=== PATIENT | male | born 1955 | race Caucasian/White ===

== ENCOUNTER → 2021-08-10 | Outpatient (CLI) | payer OTHER | LOC: M LAB 12:00 | PROVIDERS: ATTEND Internal Medicine Gastroenterology | DX: R19.7 Diarrhea, unspecified (principal) ==

== ENCOUNTER → 2021-08-11 | Outpatient (REF) | payer OTHER | LOC: M LAB REF 10:31 | PROVIDERS: ATTEND Internal Medicine Gastroenterology | DX: R19.4 Change in bowel habit (principal); Z12.11 Encounter for screening for malignant neoplasm of colon ==

== ENCOUNTER → 2021-10-01 | Outpatient (CLI) | payer OTHER ==
[~2021-10-01] MED LIST: ALEV1TAB PO; AMLO1TAB25 PO; ATEN50TA2 PO; CHLO125TA PO; DICL75TA PO; FLUO20CA22 PO; GABA-282 PO; LISI5TAB11 PO; LOSA50TA28 PO; METF500T13 PO; OMEP40CA5 PO; ZOLP10TA2 PO
== END ==
LOC: M LABSMTC 10:48
PROVIDERS: ATTEND Anesthesiology
DX: Z01.812 Encounter for preprocedural laboratory examination (principal); Z20.822 Contact with and (suspected) exposure to COVID-19

== ENCOUNTER 2021-10-06 06:32 | Day surgery (SDC) | payer MEDICARE, OTHER ==
[~2021-10-06] VITALS: Ht 177.8 cm; Wt 123.7 kg
[~2021-10-06 06:32] MED LIST changes: +NS 1,000 ML IV ONE
[2021-10-06] MEDS ORDERED: propofoL 200 MG/20 ML VIAL As Ordered ONE ×2 (06:38→07:53)
[2021-10-06] MEDS ORDERED: LIDOCAINE 2% 100MG/5ML SDV (FOR ANES.) As Ordered ONE (06:38)
[2021-10-06 08:20] VITALS: BP 139/84
== END 2021-10-06 08:36 | disposition home or self-care (01) ==
LOC: M OPP 06:32
PROVIDERS: ATTEND Internal Medicine Gastroenterology
DX: Z12.11 Encounter for screening for malignant neoplasm of colon (principal); K62.1 Rectal polyp; K63.5 Polyp of colon; G47.33 Obstructive sleep apnea (adult) (pediatric); E11.9 Type 2 diabetes mellitus without complications; Z79.84 Long term (current) use of oral hypoglycemic drugs; Z79.899 Other long term (current) drug therapy; Z86.14 Personal history of Methicillin resistant Staphylococcus aureus infection

== ENCOUNTER → 2022-02-23 | Outpatient (CLI) | payer MEDICARE ==
[~2022-02-23] MED LIST changes: -NS 1,000 ML IV ONE
== END ==
LOC: M PLALAB 11:59
PROVIDERS: ATTEND Internal Medicine Pulmonary Disease
DX: R91.8 Other nonspecific abnormal finding of lung field (principal)

== ENCOUNTER 2022-03-28 15:38 | Inpatient (IN) | payer MEDICARE ==
[~2022-03-28] VITALS: Ht 177.8 cm; Wt 123.4 kg
[2022-03-28] MEDS ORDERED: ZOLP10TA2 PO (15:57)
[2022-03-28] MEDS ORDERED: LOSA50TA5 PO (15:57)
[2022-03-28 16:37] LABS: BASO # 0.1 10^3/uL (0.0-0.2); BASO % 0.7 % (0.0-1.0); EOS # 0.2 10^3/uL (0.0-0.5); EOS % 2.3 % (0.0-3.0); HEMATOCRIT 39.4 % (42.0-52.0); HEMOGLOBIN 14.7 g/dl (13.5-17.5); LYMPH # 2.3 10^3/uL (1.5-5.0); LYMPH % 31.6 % (24.0-44.0); MEAN CORPUSCULAR HEMOGLOBIN 31.7 pg (27.0-33.0); MEAN CORPUSCULAR VOLUME 85.1 fl (80.0-96.0); MONO # 0.9 10^3/uL (0.0-0.8); MONO % 12.4 % (2.0-8.0); NEUTROPHILS # 3.8 10^3/uL (1.5-8.5); NEUTROPHILS % 52.7 % (36.0-66.0); PLATELET COUNT, AUTOMATED 263 10^3/uL (150-450); RED BLOOD COUNT 4.63 10^6/uL (4.30-6.10); WHITE BLOOD COUNT 7.3 10^3/uL (4.0-10.0)
[2022-03-28 16:41] LABS: MEAN CORPUSCULAR HGB CONC 37.3 g/dl (32.0-36.5)
[2022-03-28 16:59] LABS: BLOOD UREA NITROGEN 25 MG/DL (7-18); CALCIUM LEVEL 9.1 MG/DL (8.8-10.2); CARBON DIOXIDE LEVEL 29 MEQ/L (21-32); CHLORIDE LEVEL 98 MEQ/L (98-107); CREATININE FOR GFR 1.27 MG/DL (0.70-1.30); GLOMERULAR FILTRATION RATE > 60.0 (>49); GLUCOSE, FASTING 156 MG/DL (70-100); POTASSIUM SERUM 3.4 MEQ/L (3.5-5.1); SODIUM LEVEL 134 MEQ/L (136-145)
[2022-03-28] MEDS ORDERED: NS 1,000 ML IV ONE (18:10)
[2022-03-28] MEDS ORDERED: AMPICILLIN SOD/SULBACTAM SOD 3 GM in D5W MINI-BAG PLUS 100 ML IV ONE (18:10)
[2022-03-28] MEDS ORDERED: VANCOMYCIN HCL 2,000 MG in D5W 500 ML IV ONE (18:10)
[2022-03-28] MEDS ORDERED: VANCOMYCIN HCL 1,000 MG, VIAL MATE ADAPTER 1 EACH in NS 250 ML IV ONE ×2 (18:15→19:30)
[2022-03-28 18:34] LABS: ALBUMIN 3.6 GM/DL (3.2-5.2); ALT/SGPT 19 U/L (12-78); BILIRUBIN,DIRECT 0.3 MG/DL (0.0-0.2); BILIRUBIN,TOTAL 1.1 MG/DL (0.2-1.0); TOTAL PROTEIN 7.8 GM/DL (6.4-8.2)
[2022-03-28 19:15] LABS: ERYTHROCYTE SEDIMENTATION RATE 39 mm/hr (0-20)
[2022-03-28 19:38] LABS: RSV AMPLIFICATION NEGATIVE (NEGATIVE)
[2022-03-28] MEDS ORDERED: HOME MED LIST COMPLETE! XX SCH (20:20)
[2022-03-28] MEDS ORDERED: GLUCAGON INJ 1MG VIAL SC PRN (22:30)
[2022-03-28] MEDS ORDERED: DEXTROSE 50% 50 ML SYRINGE IV PRN (22:30)
[2022-03-28] MEDS ORDERED: GLUCOSE 4GM CHEW TABLET PO PRN (22:30)
[2022-03-28] MEDS: INSULIN LISPRO (NovoLOG) PER UNIT SC SCH (23:12)
[2022-03-28] MEDS: NS 1,000 ML IV SCH (23:13)
[2022-03-28] MEDS: ACETAMINOPHEN 500 MG TAB PO PRN (23:25)
[2022-03-28] MEDS ORDERED: POTASSIUM CHLORIDE 10% LIQ 20 MEQ/15 ML UDC PO ONE (23:45)
[2022-03-29] MEDS: VANCOMYCIN HCL 750 MG, VIAL MATE ADAPTER 1 EACH in D5W 250 ML IV SCH ×4 (05:27→18:51)
[2022-03-29] MEDS: ACETAMINOPHEN 500 MG TAB PO PRN ×2 (05:28→21:19)
[2022-03-29 06:48] LABS: BLOOD UREA NITROGEN 19 MG/DL (7-18); CALCIUM LEVEL 8.8 MG/DL (8.8-10.2); CARBON DIOXIDE LEVEL 30 MEQ/L (21-32); CHLORIDE LEVEL 100 MEQ/L (98-107); CREATININE FOR GFR 1.04 MG/DL (0.70-1.30); GLOMERULAR FILTRATION RATE > 60.0 (>49); GLUCOSE, FASTING 148 MG/DL (70-100); POTASSIUM SERUM 3.5 MEQ/L (3.5-5.1); SODIUM LEVEL 135 MEQ/L (136-145)
[2022-03-29] MEDS: INSULIN LISPRO (NovoLOG) PER UNIT SC SCH ×4 (08:42→21:00)
[2022-03-29] MEDS: OMEPRAZOLE 20MG CAP PO SCH (08:42)
[2022-03-29] MEDS: GABAPENTIN 300 MG CAP PO SCH ×3 (08:42→21:19)
[2022-03-29] MEDS: FLUoxetine 20MG CAP PO SCH (08:42)
[2022-03-29] MEDS ORDERED: LOSARTAN 50MG TABLET PO SCH (09:00)
[2022-03-29] MEDS ORDERED: KETOROLAC 30 MG/ML 1ML VIAL IV ONE (09:15)
[2022-03-29] MEDS ORDERED: HYDROMORPHONE HCL 0.5 MG/ 0.5 ML SYRINGE (J1170 PER 1) IV ONE (09:15)
[2022-03-29 09:50] LABS: CHOLESTEROL LEVEL 110 MG/DL (<200); CHOLESTEROL RISK RATIO 2.972 (<5); HDL CHOLESTEROL 37 MG/DL (>40); LDL CHOLESTEROL 43 MG/DL (<100); NON-HDL-C 73 MG/DL; TRIGLYCERIDES LEVEL 148 MG/DL (<150)
[2022-03-29 10:04] LABS: HEMOGLOBIN A1c 6.4 %
[2022-03-29] MEDS: NS 1,000 ML IV SCH (14:44)
[2022-03-29] MEDS ORDERED: LIDOCAINE 1% MDV 20ML VIAL As Ordered ONE (15:28)
[2022-03-29] MEDS ORDERED: BUPIVACAINE HCL 0.5% 30ML VIAL As Ordered ONE (15:29)
[2022-03-29] MEDS ORDERED: MIDAZOLAM INJ 2MG/2ML VIAL (J2250 PER 1MG) As Ordered ONE (16:32)
[2022-03-29] MEDS ORDERED: METOCLOPRAMIDE INJ 10MG/2ML VIAL (J2765 PER 1) As Ordered ONE (16:32)
[2022-03-29] MEDS ORDERED: ONDANSETRON 4MG 2ML VIAL As Ordered ONE (16:32)
[2022-03-29] MEDS ORDERED: fentaNYL 100 MCG/2 ML INJECTION As Ordered ONE (16:32)
[2022-03-29] MEDS ORDERED: LIDOCAINE 2% 100MG/5ML SDV (FOR ANES.) As Ordered ONE (16:32)
[2022-03-29] MEDS ORDERED: SEVOFLURANE INHAL SOLN 250 ML BTL As Ordered ONE (16:32)
[2022-03-29] MEDS ORDERED: DESFLURANE 240 ML INHALANT As Ordered ONE (16:32)
[2022-03-29] MEDS ORDERED: propofoL 200 MG/20 ML VIAL As Ordered ONE (16:32)
[2022-03-29] MEDS ORDERED: ACETAMINOPHEN 1000MG 100ML IV BTL (OFIRMEV) (J0131 PER 10MG) As Ordered ONE (16:35)
[2022-03-29 18:15] VITALS: BP 108/68
[2022-03-29 18:45] VITALS: BP 117/75
[2022-03-29 19:38] VITALS: BP 120/75
[2022-03-29 20:54] VITALS: BP 122/75
[2022-03-29 21:48] VITALS: BP 124/76
[2022-03-29] MEDS: PERCOCET 5MG/325MG TAB PO PRN (22:45)
[2022-03-30 02:00] VITALS: BP 103/59
[2022-03-30 04:41] LABS: BASO % 0.5 % (0.0-1.0); EOS # 0.2 10^3/uL (0.0-0.5); EOS % 3.2 % (0.0-3.0); HEMATOCRIT 37.4 % (42.0-52.0); HEMOGLOBIN 13.8 g/dl (13.5-17.5); LYMPH # 1.6 10^3/uL (1.5-5.0); LYMPH % 21.2 % (24.0-44.0); MEAN CORPUSCULAR HGB CONC 36.9 g/dl (32.0-36.5); MEAN CORPUSCULAR VOLUME 86.8 fl (80.0-96.0); MONO % 12.7 % (2.0-8.0); NEUTROPHILS # 4.6 10^3/uL (1.5-8.5); PLATELET COUNT, AUTOMATED 237 10^3/uL (150-450); RED BLOOD COUNT 4.31 10^6/uL (4.30-6.10); WHITE BLOOD COUNT 7.5 10^3/uL (4.0-10.0)
[2022-03-30 04:51] LABS: BLOOD UREA NITROGEN 14 MG/DL (7-18); CALCIUM LEVEL 8.3 MG/DL (8.8-10.2); CARBON DIOXIDE LEVEL 31 MEQ/L (21-32); CHLORIDE LEVEL 101 MEQ/L (98-107); GLOMERULAR FILTRATION RATE > 60.0 (>49); GLUCOSE, FASTING 121 MG/DL (70-100); POTASSIUM SERUM 3.8 MEQ/L (3.5-5.1); SODIUM LEVEL 136 MEQ/L (136-145)
[2022-03-30] MEDS: VANCOMYCIN HCL 750 MG, VIAL MATE ADAPTER 1 EACH in D5W 250 ML IV SCH ×4 (05:03→17:08)
[2022-03-30] MEDS: PERCOCET 5MG/325MG TAB PO PRN ×4 (05:13→23:14)
[2022-03-30 06:00] VITALS: BP 130/73
[2022-03-30 08:14] LABS: C REACTIVE PROTEIN QUANTITATIV 3.04 MG/DL (0.00-0.30)
[2022-03-30] MEDS: INSULIN LISPRO (NovoLOG) PER UNIT SC SCH ×4 (08:21→21:00)
[2022-03-30 08:22] LABS: ERYTHROCYTE SEDIMENTATION RATE 33 mm/hr (0-20)
[2022-03-30] MEDS: FLUoxetine 20MG CAP PO SCH (08:22)
[2022-03-30] MEDS: GABAPENTIN 300 MG CAP PO SCH ×3 (08:22→21:10)
[2022-03-30] MEDS: OMEPRAZOLE 20MG CAP PO SCH (08:22)
[2022-03-30] MEDS: MUPIROCIN 2% OINT 22 GM TUBE TOP SCH (08:24)
[2022-03-30 10:00] VITALS: BP 134/94
[2022-03-30] MEDS: ACETAMINOPHEN 500 MG TAB PO PRN ×2 (12:01→21:19)
[2022-03-30 14:00] VITALS: BP 131/73
[2022-03-30] MEDS ORDERED: LEVO1TAB40 PO (15:17)
[2022-03-30] MEDS ORDERED: PERCOCET PO (15:18)
[2022-03-30] MEDS: LevoFLOXacin 750 MG TABLET PO SCH (15:39)
[2022-03-30 18:00] VITALS: BP 129/73
[2022-03-30 22:00] VITALS: BP 109/66
[2022-03-31] MEDS: VANCOMYCIN HCL 750 MG, VIAL MATE ADAPTER 1 EACH in D5W 250 ML IV SCH ×2 (06:24→06:25)
[2022-03-31] MEDS: LevoFLOXacin 750 MG TABLET PO SCH (06:24)
[2022-03-31 07:28] LABS: BASO # 0.1 10^3/uL (0.0-0.2); EOS # 0.1 10^3/uL (0.0-0.5); EOS % 2.7 % (0.0-3.0); HEMATOCRIT 36.6 % (42.0-52.0); HEMOGLOBIN 13.3 g/dl (13.5-17.5); LYMPH # 1.1 10^3/uL (1.5-5.0); LYMPH % 22.3 % (24.0-44.0); MEAN CORPUSCULAR HEMOGLOBIN 31.5 pg (27.0-33.0); MEAN CORPUSCULAR HGB CONC 36.3 g/dl (32.0-36.5); MEAN CORPUSCULAR VOLUME 86.7 fl (80.0-96.0); MONO # 0.7 10^3/uL (0.0-0.8); MONO % 14.3 % (2.0-8.0); NEUTROPHILS # 2.9 10^3/uL (1.5-8.5); NEUTROPHILS % 59.5 % (36.0-66.0); PLATELET COUNT, AUTOMATED 228 10^3/uL (150-450); RED BLOOD COUNT 4.22 10^6/uL (4.30-6.10); WHITE BLOOD COUNT 4.9 10^3/uL (4.0-10.0)
[2022-03-31] MEDS: INSULIN LISPRO (NovoLOG) PER UNIT SC SCH (08:20)
[2022-03-31] MEDS: OMEPRAZOLE 20MG CAP PO SCH (08:21)
[2022-03-31] MEDS: FLUoxetine 20MG CAP PO SCH (08:21)
[2022-03-31] MEDS: GABAPENTIN 300 MG CAP PO SCH (08:21)
[2022-03-31 08:26] VITALS: BP 116/74
[2022-03-31] MEDS: MUPIROCIN 2% OINT 22 GM TUBE TOP SCH (08:26)
[2022-03-31 08:57] LABS: BLOOD UREA NITROGEN 11 MG/DL (7-18); CALCIUM LEVEL 8.8 MG/DL (8.8-10.2); CARBON DIOXIDE LEVEL 31 MEQ/L (21-32); CHLORIDE LEVEL 97 MEQ/L (98-107); CREATININE FOR GFR 1.02 MG/DL (0.70-1.30); GLOMERULAR FILTRATION RATE > 60.0 (>49); GLUCOSE, FASTING 181 MG/DL (70-100); POTASSIUM SERUM 3.5 MEQ/L (3.5-5.1); SODIUM LEVEL 134 MEQ/L (136-145)
[2022-03-31 10:00] VITALS: BP 113/71
== END 2022-03-31 12:00 | disposition home or self-care (01) | DRG 617 ==
LOC: M ED 15:38 → M ED INP 22:30 → ENRESERV 03-29 14:29 → M MS5PR 03-29 18:15
PROVIDERS: ADMIT Internal Medicine; ATTEND Internal Medicine
PROC: 0Y6X0Z3 Detachment at Right 5th Toe, Low, Open Approach (ICD-10-PCS; principal; 2022-03-29 15:30)
DX: E11.621 Type 2 diabetes mellitus with foot ulcer (principal); E87.1 Hypo-osmolality and hyponatremia; L03.115 Cellulitis of right lower limb; M86.471 Chronic osteomyelitis with draining sinus, right ankle and foot; E66.9 Obesity, unspecified; Z68.39 Body mass index [BMI] 39.0-39.9, adult; E11.42 Type 2 diabetes mellitus with diabetic polyneuropathy; E87.6 Hypokalemia; E11.628 Type 2 diabetes mellitus with other skin complications; K21.9 Gastro-esophageal reflux disease without esophagitis; I10 Essential (primary) hypertension; E11.51 Type 2 diabetes mellitus with diabetic peripheral angiopathy without gangrene; L97.519 Non-pressure chronic ulcer of other part of right foot with unspecified severity; K58.9 Irritable bowel syndrome, unspecified; E11.69 Type 2 diabetes mellitus with other specified complication; F32.A Depression, unspecified; L97.529 Non-pressure chronic ulcer of other part of left foot with unspecified severity; G47.00 Insomnia, unspecified; F41.9 Anxiety disorder, unspecified; Z79.899 Other long term (current) drug therapy

== ENCOUNTER → 2022-05-21 | Outpatient (CLI) | payer MEDICARE ==
[~2022-05-21] MED LIST changes: +LEVO1TAB40 PO; +LOSA50TA5 PO; +PERCOCET PO
== END ==
LOC: M RAD 11:41
PROVIDERS: ATTEND Internal Medicine Pulmonary Disease
DX: R91.8 Other nonspecific abnormal finding of lung field (principal)

== ENCOUNTER → 2022-11-19 | Outpatient (CLI) | payer MEDICARE | LOC: M PLAIMG 10:58 | PROVIDERS: ATTEND Internal Medicine Pulmonary Disease | DX: R91.8 Other nonspecific abnormal finding of lung field (principal) ==

== ENCOUNTER → 2023-04-21 | Outpatient (REF) | payer MEDICARE ==
[2023-04-21 19:03] LABS: TOTAL PROTEIN,RANDOM URINE 36.8 MG/DL (0.0-14.0)
[2023-04-21 19:19] LABS: CREATININE,RANDOM URINE 293.6 MG/DL
== END ==
LOC: M LAB REF 17:34
PROVIDERS: ATTEND Internal Medicine Nephrology
DX: R80.9 Proteinuria, unspecified (principal)

== ENCOUNTER → 2023-12-08 | Outpatient (CLI) | payer MEDICARE ==
[~2023-12-08] MED LIST changes: +FLUO-365 PO; -FLUO20CA22 PO
== END ==
LOC: M PLAIMG 09:57
PROVIDERS: ATTEND Internal Medicine Pulmonary Disease
DX: R91.8 Other nonspecific abnormal finding of lung field (principal); R91.1 Solitary pulmonary nodule; R59.0 Localized enlarged lymph nodes

== ENCOUNTER 2024-09-05 09:54 | Day surgery (SDC) | payer MEDICARE ==
[~2024-09-05] VITALS: Ht 177.8 cm; Wt 125.6 kg
[~2024-09-05 09:54] MED LIST changes: +GABA-1172 PO; -GABA-282 PO; +fentaNYL 100 MCG/2 ML INJECTION As Ordered ONE; +propofoL 500 MG/50 ML VIAL As Ordered ONE
[2024-09-05] MEDS ORDERED: FLEC25TA PO (10:29)
[2024-09-05] MEDS ORDERED: ELIQ5TAB PO (10:29)
[2024-09-05] MEDS ORDERED: MELO15TA28 PO (10:29)
[2024-09-05] MEDS ORDERED: IBUP80TA PO (10:29)
[2024-09-05] MEDS ORDERED: VANCOMYCIN HCL 1,000 MG, VIAL MATE ADAPTER 1 EACH in NS 250 ML IV ONE (11:10)
[2024-09-05] MEDS ORDERED: VANCOMYCIN HCL 1,750 MG, VIAL MATE ADAPTER 1 EACH in NS 500 ML IV SCH (11:10)
[2024-09-05] MEDS ORDERED: LIDOCAINE 2% INJ 100 MG/5 ML SYRINGE As Ordered ONE (11:22)
[2024-09-05] MEDS: LIDOCAINE 1% MDV 20ML VIAL As Ordered ONE (11:46)
[2024-09-05] MEDS: VANCOMYCIN HCL 1,750 MG, VIAL MATE ADAPTER 1 EACH in NS 500 ML IV ONE (11:58)
[2024-09-05 12:10] VITALS: BP 116/68
[2024-09-05 12:39] VITALS: TEMP 98.5; O2SAT 96
== END 2024-09-05 13:54 | disposition home or self-care (01) ==
LOC: M SDC 09:54
PROVIDERS: ATTEND Podiatrist Foot & Ankle Surgery
DX: E11.621 Type 2 diabetes mellitus with foot ulcer (principal); L97.528 Non-pressure chronic ulcer of other part of left foot with other specified severity; I10 Essential (primary) hypertension; E78.5 Hyperlipidemia, unspecified; I48.91 Unspecified atrial fibrillation; G47.33 Obstructive sleep apnea (adult) (pediatric); E66.9 Obesity, unspecified; Z79.84 Long term (current) use of oral hypoglycemic drugs; Z79.899 Other long term (current) drug therapy
CPT/HCPCS: 28113; 88305; 88311; J0665; J3010; J3371